=== PATIENT | female | born 1965 | race African-American/Black ===

== ENCOUNTER 2019-03-06 11:08 | Emergency (ER) | payer OTHER ==
[~2019-03-06] VITALS: Ht 170.2 cm; Wt 72.7 kg
[2019-03-06 11:18] VITALS: Ht 170.2 cm; Wt 72.7 kg
[2019-03-07 23:18] VITALS: BP 159/105; PULSE 72; RESP 16
== END 2019-03-07 23:20 ==
LOC: E/R 11:08
DX: F10.929 Alcohol use, unspecified with intoxication, unspecified (principal); D72.819 Decreased white blood cell count, unspecified; D64.9 Anemia, unspecified; E87.6 Hypokalemia; Z72.89 Other problems related to lifestyle
CPT/HCPCS: 80053; 80307; 81001; 85025; Z7502; Z7610; 81003